=== PATIENT | female | born 1955 | race Caucasian/White ===

== ENCOUNTER 2017-03-17 11:21 | Emergency (ER) | payer SELFPAY ==
[2017-03-17 12:08] VITALS: BP 152/80
--- NOTE | 2017-03-17 12:47 | RAD ---
HISTORY: Left ankle trauma, pain, swelling COMPARISONS: None VIEWS: 3, Frontal, lateral, and oblique views of the left ankle FINDINGS: BONE DENSITY: Normal. BONES: There is a small bone fragment of the medial malleolus JOINTS: There is no arthropathy. ALIGNMENT: There is no dislocation. SOFT TISSUES: Unremarkable. OTHER FINDINGS: None. IMPRESSION: SMALL NONDISPLACED AVULSION FRACTURE OF THE MEDIAL MALLEOLUS
--- NOTE | 2017-03-17 13:24 | UC ---
Lower Extremity/Ankle HPI - HPI Summary HPI Summary: Patient presents to the with CC of left ankle pain after tripping at bowling last evening. She denies falling. Thorough physical exam was performed, focusing on ankle special tests. Pain on palpation over lateral aspect and superior aspect of ankle over ATFL and deltoid ligaments. No pain on palpation over medial side. Due to patient pain around injury, physical exam was limited. Carmichael test negative. Limited ROM. Dorsiflexion, great toe extension and plantar flexion intact however limited. No pain on palpation over medial or lateral lower extremity. No pain with knee flexion. Pulses intact bilaterally. No temperature change or pallor noted bilaterally. No ecchymosis and swelling noted on lateral aspect. No lesion or disruption of skin is seen. Unable to bear weight. Pulses +2 bilaterally and cap refill <2 sec. - History of Current Complaint Chief Complaint: UCLowerExtremity Stated Complaint: ANKLE INJURY Time Seen by Provider: 03/17/17 12:11 Hx Obtained From: Patient ?: No Onset/Duration: Sudden Onset Severity Initially: Mild Severity Currently: Mild Pain Intensity: 2 Pain Scale Used: 0-10 Numeric Aggravating Factor(s): Standing, Ambulation Alleviating Factor(s): Rest, Elevation Able to Bear Weight: Yes - Risk Factors Gout Risk Factors: Age Over 40 DVT Risk Factors: Negative Septic Arthritis Risk Factor: Negative - Allergies/Home Medications Allergies/Adverse Reactions: Allergies Allergy/AdvReac Type Severity Reaction Status Date / Time Bee Venom Allergy Severe Anaphylatic Verified 03/17/17 11:59 Shock Codeine Allergy Severe Vomiting Verified 03/17/17 11:59 Home Medications: Home Medications NK [No Home Medications Reported] 03/17/17 [History Confirmed 03/17/17] PMH/Surg Hx/FS Hx/Imm Hx Previously Healthy: Yes - Surgical History Surgical History: Yes Surgery Procedure, Year, and Place: 07/21/10 - Left knee surgery. 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 - Family History Known Family History: Positive: None - Social History Occupation: Employed Full-time Lives: With Family Alcohol Use: Rare Substance Use Type: None Smoking Status (MU): Former Smoker Have You Smoked in the Last Year: No When Did the Patient Quit Smoking/Using Tobacco: QUIT 36 YEARS AGO - Immunization History Most Recent Influenza Vaccination: NEVER Most Recent Tetanus Shot: UTD Most Recent Pneumonia Vaccination: HAS NOT HAD Review of Systems Constitutional: Negative Skin: Negative ENT: Negative Respiratory: Negative Cardiovascular: Negative Gastrointestinal: Negative Motor: Decreased ROM Neurovascular: Negative Musculoskeletal: Arthralgia - left lateral ankle pain Neurological: Negative Psychological: Negative Is Patient Immunocompromised?: No All Other Systems Reviewed And Are Negative: Yes Physical Exam Triage Information Reviewed: Yes Appearance: Well-Appearing, Well-Nourished Vital Signs: Initial Vital Signs Temp 98.6 F 03/17/17 12:00 Pulse 68 03/17/17 12:00 Resp 16 03/17/17 12:00 BP 152/80 03/17/17 12:00 Pulse Ox 100 03/17/17 12:00 Vital Signs Reviewed: Yes Eye Exam: Normal Eyes: Positive: Conjunctiva Clear Dental: Positive: Abscess @ Neck: Positive: Supple, No Lymphadenopathy Respiratory Exam: Normal Respiratory: Positive: Chest non-tender, Lungs clear Cardiovascular Exam: Normal Cardiovascular: Positive: RRR Musculoskeletal: Positive: ROM Limited @ - limited Neurological Exam: Normal Neurological: Positive: Alert, Muscle Tone Normal Psychological: Positive: Normal Response To Family Skin Exam: Normal Lower Extremity Course/Dx - Course Course Of Treatment: Based on [place] [facility]le Rules, patient sent to imaging. IMPRESSION: SMALL NONDISPLACED AVULSION FRACTURE OF THE MEDIAL MALLEOLUS. Soft tissue swelling noted over the lateral aspect of the ankle. Medial and lateral distal lower extremity without pain and x-rays show no widening of the ankle joint regarding low suspicion for Maisonneuve fx. Ankle was yuri wrapped to patient comfort to allow for immobilization for this period of time. Patient given orthopedic follow up in 5-7 days. Encouraged Ibuprofen 600mg three times daily with meals for pain. Posterior walking splint applied. Return precautions given. Educated patient regarding ankle injuries and healing time and the possibility of further evaluation and imaging as orthopedist sees fit. - Differential Dx/Diagnosis Differential Diagnosis/HQI/PQRI: Fracture (Closed), Fracture (Open), Sprain, Strain Provider Diagnoses: Avulsion Fracture of the Medial Malleolus Discharge - Discharge Plan Condition: Stable Disposition: HOME Patient Education Materials: Ankle Fracture (ED) Forms: *Work Release Referrals: Wade Maloney MD [Primary Care Provider] - Alexandro Roman MD [Medical Doctor] - Additional Instructions: Follow up with ortho in 1 week Do not get the splint wet Do not bear weight until follow up Crutches for ambulation Elevate as much as possible Ibuprofen 600mg three times daily
== END 2017-03-17 13:30 | disposition home or self-care (01) ==
LOC: UCEAST 11:21
DX: S82.55XA Nondisplaced fracture of medial malleolus of left tibia, initial encounter for closed fracture (principal); Z88.6 Allergy status to analgesic agent; Z87.891 Personal history of nicotine dependence; W01.0XXA Fall on same level from slipping, tripping and stumbling without subsequent striking against object, initial encounter
CPT/HCPCS: 99211; G0463

== ENCOUNTER 2018-10-11 09:51 | Emergency (ER) | payer BC ==
[2018-10-11 10:13] VITALS: BP 163/79
--- NOTE | 2018-10-11 10:39 | UC ---
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 She has measured temperatures up to 99.7. She is a nonsmoker and only smoked in the very remote past. She denies any joint aches or difficulty breathing. She denies any specific sick contacts but does work with schoolchildren. - History of Current Complaint Chief Complaint: UCGeneralIllness Stated Complaint: RESPOR/SINUS Time Seen by Provider: 10/11/18 10:29 Hx Obtained From: Patient Pain Intensity: 10 - Allergy/Home Medications Allergies/Adverse Reactions: Allergies Allergy/AdvReac Type Severity Reaction Status Date / Time bee venom protein (honey bee) Allergy Anaphylatic Verified 10/11/18 10:14 Shock codeine Allergy Vomiting Verified 10/11/18 10:14 PMH/Surg Hx/FS Hx/Imm Hx Cardiovascular History: Other - Denies hypertension - Surgical History Surgical History: Yes Surgery Procedure, Year, and Place: 07/21/10 - Left knee surgery. 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 - Family History Known Family History: Positive: None, Other - Daughter was a little more than a month ago - Social History Occupation: Employed Full-time Alcohol Use: Occasionally Substance Use Type: None Smoking Status (MU): Former Smoker Have You Smoked in the Last Year: No When Did the Patient Quit Smoking/Using Tobacco: QUIT 36 YEARS AGO - Immunization History Most Recent Influenza Vaccination: NEVER Most Recent Tetanus Shot: UTD Most Recent Pneumonia Vaccination: HAS NOT HAD Review of Systems All Other Systems Reviewed And Are Negative: Yes Constitutional: Positive: Fever Skin: Positive: Negative Eyes: Positive: Negative ENT: Positive: Sore Throat, Nasal Discharge, Sinus Congestion Respiratory: Positive: Cough. Negative: Shortness Of Breath Cardiovascular: Positive: Negative Gastrointestinal: Positive: Negative Genitourinary: Positive: Negative Physical Exam Triage Information Reviewed: Yes Appearance: Well-Appearing, No Pain Distress, Well-Nourished Vital Signs: Initial Vital Signs Temp 98.0 F 10/11/18 10:10 Pulse 74 10/11/18 10:10 Resp 18 10/11/18 10:10 BP 163/79 10/11/18 10:10 Pulse Ox 98 10/11/18 10:10 Eyes: Positive: Conjunctiva Clear ENT: Positive: Pharyngeal erythema, Nasal congestion, Nasal drainage, TMs normal. Negative: Tonsillar swelling, Tonsillar exudate, Sinus tenderness Neck: Positive: Supple, Nontender Respiratory: Positive: Lungs clear, No respiratory distress Cardiovascular: Positive: RRR Musculoskeletal: Positive: ROM Intact, No Edema Neurological: Positive: Alert Skin Exam: Normal Flu Course/Dx - Course Course Of Treatment: Upper respiratory symptoms for 4 days. No fever greater than 99.7. Lungs clear. Treat symptomatically. Blood pressure elevated we'll have rechecked by primary care doctor. - Differential Dx/Diagnosis Differential Diagnosis/HQI/PQRI: Bronchitis, Influenza, Pneumonia, Upper Respiratory Infection Provider Diagnosis: Acute upper respiratory infection Discharge - Sign-Out/Discharge Documenting (check all that apply): Patient Departure All imaging exams completed and their final reports reviewed: No Studies - Discharge Plan Condition: Improved Disposition: HOME Prescriptions: Benzonatate CAP* [Tessalon 100 MG CAP*] 100 mg PO TID PRN #21 cap PRN Reason: Cough Dexamethasone TAB* [Decadron TAB*] 8 mg PO DAILY #8 tab Guaifenesin/Pseudoephedrne HCl [Mucinex D ER 1,200-120 mg Tab] 1 each PO BID PRN #14 tab.er.12h PRN Reason: cough/congestion Patient Education Materials: Upper Respiratory Infection (ED) Forms: *Work Release Referrals: Wade Maloney MD [Primary Care Provider] - Additional Instructions: Humidifier while sleeping. Tylenol, ibuprofen for body aches or fever. Stay well-hydrated. Return with difficulty breathing, increased fevers, worse, new symptoms or other concerns. Call today to schedule follow-up appointment with your doctor. Have them recheck her blood pressure. - Billing Disposition and Condition Condition: IMPROVED Disposition: Home
== END 2018-10-11 10:40 | disposition home or self-care (01) ==
LOC: UCEAST 09:51
DX: J06.9 Acute upper respiratory infection, unspecified (principal); Z88.5 Allergy status to narcotic agent; Z91.030 Bee allergy status; Z87.891 Personal history of nicotine dependence
CPT/HCPCS: 99212; G0463